=== PATIENT | male | born 1995 | race Caucasian/White ===

== ENCOUNTER 2022-05-17 12:16 | Emergency (ER) | payer OTHER ==
[~2022-05-17] VITALS: Ht 182.9 cm; Wt 75.0 kg
[2022-05-17 13:08] LABS: CHLORIDE 105 mEq/L (98-107)
[2022-05-17 13:10] LABS: BASOPHILS % 0.6 % (0.0-2.0); EOSINOPHILS % 1.5 % (0.0-5.0); HEMATOCRIT. 45.5 % (42.0-52.0); HEMOGLOBIN. 15.3 g/dL (14.0-18.0); LYMPHOCYTES % 32.1 % (20.0-50.0); MEAN CORPUSCULAR VOLUME 95.1 fL (80.0-94.0); MEAN PLATELET VOLUME 8.7 fl (7.4-10.4); MONOCYTES % 7.6 % (2.0-8.0); NEUTROPHILS % 58.2 % (40.0-76.0); PLATELET 245 x1000/uL (130-400); RED BLOOD CELL COUNT 4.79 mill/uL (4.7-6.1); RED CELL DISTRIBUTION WIDTH 12.1 % (11.6-14.6)
[2022-05-17 14:30] VITALS: BP 125/81
== END 2022-05-17 18:23 | disposition home or self-care (01) ==
LOC: ER 12:16
DX: R07.89 Other chest pain (principal); M79.10 Myalgia, unspecified site; S29.011A Strain of muscle and tendon of front wall of thorax, initial encounter; X58.XXXA Exposure to other specified factors, initial encounter; Y93.89 Activity, other specified; Y92.89 Other specified places as the place of occurrence of the external cause; Y99.8 Other external cause status; Z90.49 Acquired absence of other specified parts of digestive tract; Z87.891 Personal history of nicotine dependence
CPT/HCPCS: 36415; 71045; 80053; 83880; 84484; 85025; 85379; 93005; 99285